=== PATIENT | female | born 1950 | race Caucasian/White ===

== ENCOUNTER 2023-11-08 10:57 | Day surgery (SDC) | payer MEDICARE, SELFPAY ==
--- NOTE | 2023-11-05 13:15 | HO.ANESPROP2 ---
HPI - Anesthesia Eval Consult details Narrative: 73yo F for Sigmoidoscopy Flexible Anesthesia Pre-Procedure Meds Is the patient on any of the following meds?: Dulaglutide (Trulicity) (Last dose 10/31/23) If Yes to any meds - educate patient: Pt education - increased risk of aspiration and Pt education - possibility of cancelled proc at provider's discretion PMFSH Past Medical History Medical History Colostomy in place High cholesterol Sleep apnea Gout Hypothyroid Colitis Chronic renal disease Diabetes Hypertension Hx of gastroesophageal reflux (GERD) Surgical History Surgical History History of cholecystectomy History of back surgery Hx of ileostomy H/O colectomy Hx of colonoscopy Social History Social History Patient Tobacco Use Status: Former Tobacco user Use of substances other than those prescribed or required for medical reasons: No Are you DNR?: No Advance Directives: No Advance Directives Information Provided: Yes Patient : No Meds Allergies Allergy/AdvReac Type Severity Reaction Status Date / Time Iodinated Contrast Media Allergy Severe Unknown Verified 11/08/23 11:50 [Contrast Dye] adhesive Allergy Unknown Verified 11/05/23 12:46 pantoprazole [From Protonix] Allergy Unknown Verified 11/08/23 11:51 Home Medications Medication Instructions Recorded Confirmed Last Taken Type amlodipine 5 mg tablet 5 mg PO DAILY 11/05/23 11/05/23 Unknown History bupropion HCl 200 mg tablet,12 hr 200 mg PO BID 11/05/23 11/05/23 Unknown History sustained-release colchicine 0.6 mg tablet PO 11/05/23 Unknown History dulaglutide 1.5 mg/0.5 mL mg subcut 11/05/23 10/31/23 History subcutaneous pen injector (Trulicity) gabapentin 300 mg capsule 300 mg PO DAILY 11/05/23 11/05/23 Unknown History levothyroxine 125 mcg tablet PO 11/05/23 Unknown History (Levoxyl) metoprolol succinate 100 mg 100 mg PO DAILY 11/05/23 11/05/23 Unknown History tablet,extended release 24 hr Assessment and Plan Assessment Anesthesia Assessment: Chart Reviewed
[2023-11-08 11:57] VITALS: BMI 48.9
--- NOTE | 2023-11-08 12:03 | PC.NURSE ---
patient stated she did her own fleet enema at home arounf 945am. md gannon aware and no new fleet enema needed.
--- NOTE | 2023-11-08 12:13 | HO.ANESPROP2 ---
[facility] Past Medical History Medical History Colostomy in place High cholesterol Sleep apnea Gout Hypothyroid Colitis Chronic renal disease Diabetes Hypertension Hx of gastroesophageal reflux (GERD) Functional capacity: independent ambulation Patient : No Surgical History Surgical History History of cholecystectomy History of back surgery Hx of ileostomy H/O colectomy Hx of colonoscopy History of Problems with Anesthesia: No Social History Social History Patient Tobacco Use Status: Former Tobacco user Meds Allergies Allergy/AdvReac Type Severity Reaction Status Date / Time Iodinated Contrast Media Allergy Severe Unknown Verified 11/08/23 11:50 [Contrast Dye] adhesive Allergy Unknown Verified 11/05/23 12:46 pantoprazole [From Protonix] Allergy Unknown Verified 11/08/23 11:51 Active Medications: Current Medications Lactated Ringer's (Lr) 1,000 mls @ 100 mls/hr IVCONT .Q10H [facility] Home Medications Medication Instructions Recorded Confirmed Last Taken Type amlodipine 5 mg tablet 5 mg PO DAILY 11/05/23 11/05/23 Unknown History bupropion HCl 200 mg tablet,12 hr 200 mg PO BID 11/05/23 11/05/23 Unknown History sustained-release colchicine 0.6 mg tablet PO 11/05/23 Unknown History dulaglutide 1.5 mg/0.5 mL mg subcut 11/05/23 10/31/23 History subcutaneous pen injector (Trulicity) gabapentin 300 mg capsule 300 mg PO DAILY 11/05/23 11/05/23 Unknown History levothyroxine 125 mcg tablet PO 11/05/23 Unknown History (Levoxyl) metoprolol succinate 100 mg 100 mg PO DAILY 11/05/23 11/05/23 Unknown History tablet,extended release 24 hr Exam Height,Weight and Vital Signs: Height 5 ft Weight 113.511 kg Airway Mallampati Class: II TM Dist: >3cm Neck ROM: Full Heart: RRR Lungs: CTA Assessment and Plan Assessment Anesthesia Assessment: Anesthesia Plan Discussed Final Anesthetic Review History of Problems with Anesthesia: No ASA Class: III Final Preanesthetic Review: Meds/Allgs Chart Reviewed, Consent Obtained/Reviewed and Anes Risks/Benef Reviewed Patient Risk: Intermediate Procedure Risk: Low Anesthetic Plan Anesthetic Plan: MAC: Disposition: Standard PACU
--- NOTE | 2023-11-08 12:13 | PC.NURSE ---
small dime size drips on fllor and quarter size blood drop on chair. brownish red in color.
[2023-11-08 12:15] VITALS: BP 136/71; PULSE 86; RESP 16; TEMP 36.8; O2SAT 95
[2023-11-08 12:54] VITALS: BP 98/56; PULSE 82; RESP 16; TEMP 36.7; O2SAT 97
--- NOTE | 2023-11-08 12:56 | PM.OP ---
Brief Operative Note Date of Service: 11/08/23 Pre-op diagnosis: Screening Post-op diagnosis: same Procedure: Incomplete Flex sig Surgeon: Joao Brown MD Anesthesia: MAC Was an [employer] used for this Procedure?: No Estimated blood loss (mL): 0 Pathology: none sent Condition: stable Disposition: PACU
[2023-11-08 13:09] VITALS: BP 131/59; PULSE 79; RESP 18; TEMP 36.7; O2SAT 97
--- NOTE | 2023-11-08 13:28 | HO.POSTANES ---
Post Anesthesia Evaluation Post Anesthesia Evaluation Date of Service: 11/08/23 Vital Signs: Vital Signs Temp Pulse Resp BP Pulse Ox O2 Del Method 11/08/23 13:09 98.0 F 79 18 131/59 L 97 Room Air 11/08/23 12:54 98.0 F 82 16 98/56 L 97 Room Air 11/08/23 12:15 98.2 F 86 16 136/71 95 Room Air Anesthesia: Monitored Mental Status: Awake Pain Control: Satisfactory Nausea/Vomiting: None Hydration: Adequate Anesthesia-Related Issues: No Anes. Related Issues
--- NOTE | 2023-11-08 20:24 | OP_ITS ---
DATE OF SERVICE: 11/08/2023 SURGEON: Joao Brown MD INDICATIONS: The patient presents for evaluation of colorectal cancer screening. Full consent has been obtained from her for this, including risks of bleeding and perforation. PREOPERATIVE DIAGNOSIS: Colorectal cancer screening. POSTOPERATIVE DIAGNOSIS: Colorectal cancer screening. PROCEDURE PERFORMED: Incomplete flexible sigmoidoscopy. ESTIMATED BLOOD LOSS: COMPLICATIONS: ANESTHESIA: Monitored anesthesia care. ASSISTANTS: SPECIMENS: DESCRIPTION OF PROCEDURE: The patient was placed in the left lateral decubitus position, I could not get my finger into the anal canal for a rectal exam. There was a small skin tag, but otherwise, the perianal area appeared normal. The Olympus video pediatric colonoscope was entered into the anus and advanced less than 5 cm. However, the rectum did not insufflate, and there was thick mucus and other solid debris that obscured our view completely and was not amenable to irrigation. At that point, the procedure was terminated. She tolerated the procedure well and was returned to the recovery area in stable condition. IMPRESSION: Incomplete flexible sigmoidoscopy. 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 I think the poor distensibility and residual material in the rectum were consistent with a short remaining rectal limb. At this point, I would not pursue any further diagnostic measures. She is asymptomatic, and I do not think any further attempts at any type of colorectal cancer screening are necessary. She will see me on a p.r.n. basis. This has been discussed in detail with her . Joao Brown MD RMW/MODL / [id number] MTDD
== END 2023-11-08 13:45 | disposition home or self-care (01) ==
PROVIDERS: PCP Family Medicine; Visit Provider Internal Medicine
PROC: 0DJD8ZZ Inspection of Lower Intestinal Tract, Via Natural or Artificial Opening Endoscopic (ICD-10-PCS; CPT 45330; principal; 2023-11-08 11:50)
DX: Z12.11 Encounter for screening for malignant neoplasm of colon (principal); K64.4 Residual hemorrhoidal skin tags; K62.89 Other specified diseases of anus and rectum; Z87.19 Personal history of other diseases of the digestive system; Z90.49 Acquired absence of other specified parts of digestive tract; Z93.3 Colostomy status; K21.9 Gastro-esophageal reflux disease without esophagitis; E11.22 Type 2 diabetes mellitus with diabetic chronic kidney disease; I12.9 Hypertensive chronic kidney disease with stage 1 through stage 4 chronic kidney disease, or unspecified chronic kidney disease; N18.9 Chronic kidney disease, unspecified; Z79.85 Long-term (current) use of injectable non-insulin antidiabetic drugs; Z79.899 Other long term (current) drug therapy; Z87.891 Personal history of nicotine dependence
CPT/HCPCS: 45330; 82947; J2704